=== PATIENT | female | born 1985 | race Caucasian/White ===

== ENCOUNTER 2017-07-19 16:23 | Emergency (ER) | payer MEDICAID ==
[~2017-07-19] VITALS: Ht 167.6 cm; Wt 72.6 kg
[~2017-07-19 16:23] MED LIST: ADVAIR 2501 DISK W/D IH; ADVAIR 25028 BLISTER INH; ADVAIR 50028 BLISTE1 INH; ADVAIR 50028 BLISTER INH; ADVAIR HFA 230/12 GM INH; ALBUTEROL SULF8.5 G1 IH; ALBUTEROL0.83 MG/ML INH; ALBUTEROL17 GM INH; ALBUTEROL2.5 MG/3 M IH; ANTI-TUSS100 MG/5 M PO; ATIVAN1 MG PO; AZITHROMYCIN250 MG PO; BENZONATATE200 M1 PO; BIAXIN500 M1 PO; BUTALB-ACETAMI1 EAC4 PO; CLARITIN10 M1 PO; CLINDAMYCIN HC300 M2 PO; COMBIVENT1 PUFF INH; DELTASONE20 MG PO; DIFLUCAN150 M1 PO; DOXYCYCLINE HY100 M3 PO; EPIPEN 2-P0.3 MG/0.3 IM; ERYTHROMYCIN3.5 GM OP; FLEXERIL10 MG PO; HYDROCODON-ACE1 EA16 PO; IBUPROFEN800 MG PO; IMITREX50 MG PO; KEFLEX500 MG PO; KEPPRA; LINZESS145 MC1 PO; LOESTRIN 24 FE1 TAB; MOTRIN600 MG PO; MUCINEX600 MG PO; NAPROSYN500 M1 PO; NO HOME MEDS; NORCO 5-325 TA1 EACH PO; NORCO 5/325 TAB1 TAB PO; NORFLEX100 MG PO; NUVA RING; OXYCODONE/APAP PO; PERCOCET 5-3251 EACH PO; PHENERGAN W/CO120 M1 PO; PREDNISONE10 M1 PO; PREDNISONE10 MG PO; PREDNISONE20 M1 PO; PREDNISONE20 MG PO; PRILOSEC OTC20 MG PO; PROMETHAZINE HC25 M3 PO; PROMETHAZINE V118 M2 PO; PROTONIX40 M2 PO; PROTONIX40 M3 PO; PROTONIX40 MG PO; PROVENTIL HFA6.7 G1 IH; PROVENTIL HFA6.7 G1 INH; SINGULAIR10 MG PO; SPIRIVA18 MCG IH; TAMIFLU75 MG/CAP PO; TESSALON PERLE100 MG PO; TRAMADOL HCL50 M2 PO; TYLENOL500 MG; ULTRAM50 MG PO; VALIUM5 MG PO; VIBRAMYCIN100 M1 PO; VOLTAREN75 MG PO; XOPENEX HFA15 GM IH; XOPENEX0.63 MG/1 AERO NEB; Z-PACK; ZITHROMAX250 M1 PO; ZITHROMAX250MG Z-PAK PO; ZOFRAN4 M2 PO; ZYRTEC10 M3 PO
[2017-07-19] MEDS ORDERED: DELTASONE20 MG PO (17:25)
== END 2017-07-19 18:34 ==
LOC: EDMED 16:23
DX: S99.922A Unspecified injury of left foot, initial encounter (principal); J45.909 Unspecified asthma, uncomplicated; G43.909 Migraine, unspecified, not intractable, without status migrainosus; Z87.19 Personal history of other diseases of the digestive system; X34.XXXA Earthquake, initial encounter; Y92.019 Unspecified place in single-family (private) house as the place of occurrence of the external cause